=== PATIENT | female | born 1970 | race Hispanic/Latino ===

== ENCOUNTER 2017-08-21 14:37 | Inpatient (IN) | payer OTHER ==
[~2017-08-21] VITALS: Ht 162.6 cm; Wt 87.5 kg
--- OUTSIDE RECORDS SUMMARY | 2017-08-21 14:39 | XMS REPORT ---
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 Conditions or Problems Problem Name Problem Code Onset Date Status Entry Date Provider Comment Standard Description Annotate Cervix, screening for malignant neoplasm V76.2 Active Kan Tobias MD Screening for malignant neoplasms of the cervix Hand Counter annual exam V72.3 Active Kan Tobias MD Special investigations and examinations - Gynecological examination IUD surveillance V25.42 Active Kan Tobias MD Encounter for surveillance of intrauterine contraceptive device Mammogram not high risk screening V76.12 Active Kan Tobias MD Other screening mammogram Medication List Medication Instructions Start Date Stop Date Generic Name NDC Status Provider Patient Instruction Drug Treatment Unknown - unknown Vital Signs Date Name Value Unit Range Description blood pressure, diastolic 76 mm[Hg] BP tejeda blood pressure, systolic 122 mm[Hg] BP sys height E&M 61 [in_us] Bdy height pulse rate E&M 77 /min Heart rate respiratory rate E&M 17 /min Resp rate temperature E&M 98.6 [degF] Body temperature weight E&M 192 [lb_av] Weight Measured Procedures Code Procedure Name Date Entry Date Standard Description CPT-09994 New Patient Well Exam (40 - 64 Yrs) - 51500 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
[2017-08-21 15:28] LABS: BASOPHILS # (AUTO) 0.1 (0.0-0.1); BASOPHILS % 0.4 % (0.0-1.0); EOSINOPHILS # (AUTO) 0.5 (0.0-0.4); EOSINOPHILS % 4.2 % (0.0-6.0); HEMATOCRIT 37.5 % (34.2-44.1); HEMOGLOBIN 13.1 g/dL (12.0-16.0); LYMPHOCYTES # (AUTO) 1.9 (1.0-3.2); LYMPHOCYTES % 15.7 % (18.0-39.1); MEAN CORPUSCULAR HGB CONC 34.9 g/dL (31-35); MONOCYTES # (AUTO) 0.4 (0.2-0.8); MONOCYTES % 3.6 % (4.4-11.3); NEUTROPHILS # (AUTO) 8.9 (2.1-6.9); NEUTROPHILS % 75.8 % (38.7-80.0); PLATELET COUNT 313 x10e3/uL (140-360); RED BLOOD COUNT 4.52 x10e6/uL (3.6-5.1); RED CELL DISTRIBUTION WIDTH 12.6 % (11.7-14.4)
[2017-08-21] MEDS ORDERED: FAMOTIDINE 20 MG/2 ML VIAL IV STA (15:44)
[2017-08-21] MEDS ORDERED: SODIUM CHLORIDE 0.9% 1000ML 1,000 ML IV ONE (15:45)
[2017-08-21] MEDS ORDERED: MAALOX/LIDOCAINE/BENADRYL 120 ML BTL PO ONE ×2 (15:45→16:15)
[2017-08-21 15:50] LABS: COLOR,URINE YELLOW (YELLOW)
[2017-08-21 15:51] LABS: ALANINE AMINOTRANSFERASE 16 IU/L (0-55); ALBUMIN 4.2 g/dL (3.5-5.0); ALBUMIN/GLOBULIN RATIO 1.2 (0.8-2.0); ALKALINE PHOSPHATASE 76 IU/L (40-150); ANION GAP 13.6 mmol/L (8-16); BILIRUBIN,URINE NEGATIVE (NEGATIVE); BLOOD UREA NITROGEN 12 mg/dL (7-26); BUN/CREATININE RATIO 17 (6-25); CALCIUM 9.2 mg/dL (8.4-10.2); CARBON DIOXIDE 23 mmol/L (22-29); CHLORIDE 103 mmol/L (98-107); CLARITY,URINE SL CLOUDY (CLEAR); CREATININE, SERUM 0.71 mg/dL (0.57-1.11); EST GLOMERULAR FILTRATION RATE > 60 ML/MIN (60-); GLUCOSE 121 mg/dL (74-118); KETONES,URINE NEGATIVE (NEGATIVE); LEUKOCYTE ESTERASE ,URINE TRACE (NEGATIVE); NITRITE,URINE NEGATIVE (NEGATIVE); POTASSIUM 3.6 mmol/L (3.5-5.1); PROTEIN,URINE DIPSTICK NEGATIVE (NEGATIVE); SODIUM 136 mmol/L (136-145); URINE UROBILINOGEN 0.2 mg/dL (0.2 - 1)
[2017-08-21 16:08] LABS: AMYLASE 65 U/L (25-125); CREATINE KINASE 109 IU/L (29-168); LIPASE 13 U/L (8-78)
[2017-08-21 16:14] LABS: BACTERIA,URINE MANY /HPF; EPITHELIAL CELLS,URINE MODERATE /LPF; WBC,URINE (MAN) 0-5 /HPF (0-5)
--- NOTE | 2017-08-21 16:20 | Diagnostic Imaging Report ---
PROCEDURE: A single AP view of the chest. COMPARISON: None. INDICATIONS: ACID REFLUX. MID UPPER ABDOMINAL PAIN FINDINGS: Lines/tubes: None. Lungs: The lungs are well inflated and clear. There is no evidence of pneumonia or pulmonary edema. Pleura: There is no pleural effusion or pneumothorax. Heart and mediastinum: The heart and the mediastinum are unremarkable. Bones: No acute bony abnormality. IMPRESSION: No acute cardiopulmonary disease. Dictated by: Edgard Slade M.D. on 08/21/2017 at 16:20 Electronically approved by: Edgard Slade M.D. on 08/21/2017 at 16:20
[2017-08-21] MEDS ORDERED: MORPHINE SULFATE 5 MG/ML VIAL IV ONE (16:45)
[2017-08-21] MEDS ORDERED: MORPHINE SULFATE 2 MG/ML SYR IV ONE (16:45)
[2017-08-21] MEDS ORDERED: DONNATAL/LIDOCAINE/MAALOX 30 ML SUSP PO ONE ×2 (16:45→17:00)
[2017-08-21] MEDS ORDERED: ONDANSETRON HCL INJ 2 MG/ML VIAL IV STA (16:51)
--- NOTE | 2017-08-21 18:16 | Diagnostic Imaging Report ---
PROCEDURE: CT ABDOMEN AND PELVIS WITH CONTRAST TECHNIQUE: The abdomen and pelvis were scanned utilizing a multidetector helical scanner from the diaphragm to the lesser trochanter after the IV administration of 100 cc of Isovue 370 and the oral administration of water. Coronal and sagittal multiplanar reformations were obtained. DLP: 615.13 mGy-cm COMPARISON: None. INDICATIONS: abdominal pain FINDINGS: LOWER THORAX: Left lower lobe 0.4 cm pulmonary nodule (series 2 image 6). HEPATOBILIARY: A 0.5 cm hypodensity at the dome is too small to characterize but probably a cyst. No biliary ductal dilatation. SPLEEN: No splenomegaly. PANCREAS: No focal masses or ductal dilatation. ADRENALS: No adrenal nodules. KIDNEYS/URETERS: No hydronephrosis, stones, or solid mass lesions. A few tiny hypodensities in both kidneys measure up to 0.5 cm in the right renal pole, too small to characterize but likely cysts. PELVIC ORGANS/BLADDER: Intrauterine device in place. Left ovarian 2.1 cm corpus luteum. PERITONEUM / RETROPERITONEUM: No free air or fluid. LYMPH NODES: No lymphadenopathy. VESSELS: A 0.6 cm rounded calcification in the splenic hilum may represent a small splenic artery aneurysm (coronal image 60). GI TRACT: No distention or wall thickening. The appendix is normal. BONES AND SOFT TISSUES: Fat containing supraumbilical hernia with 4.1 x 2.6 x 3 cm sac and 0.7 cm neck. Hernia neck is located approximately 2 cm superior to the umbilicus. IMPRESSION: No acute abnormalities in the abdomen and pelvis. Dictated by: Edgadr Slade M.D. on 08/21/2017 at 18:16 Electronically approved by: Edgard Slade M.D. on 08/21/2017 at 18:16
[2017-08-21] MEDS ORDERED: PIPER-TAZ 3.375 GM 50 ML IV ONE (19:00)
[2017-08-21] MEDS ORDERED: SODIUM CHLORIDE FLUSH 10 ML SYR INJ PRN (19:00)
--- OUTSIDE RECORDS SUMMARY | 2017-08-21 19:17 | XMS REPORT ---
Author [facility] Address Unknown Phone Unavailable Care Team Providers Care Cloth Tester Quality Name Role Phone EMERSON MONTEIRO Unavailable Unavailable Problems This patient has no known problems. Allergies, Adverse Reactions, Alerts This patient has no known allergies or adverse reactions. Medications This patient has no known medications. Results Test Description Test Time Test Comments Text Results Atomic Results Result Comments CT ABDOMEN/PELVIS W [place] [address] Patient Name: JAMIE VERGARA MR #: [id number] : 1970 Age/Sex: 47/F Req #: [id number] Adm Physician: Ordered by: EMERSON MONTEIRO MD Report #: [id number] Location: ER Room/Bed: Procedure: [id number] CT/CT ABDOMEN/PELVIS W Exam Date: Exam Time: REPORT STATUS: Signed PROCEDURE: CT ABDOMEN AND PELVIS WITH CONTRAST TECHNIQUE: The abdomen and pelvis were scanned utilizing a multidetector helical scanner from the diaphragm to the lesser trochanter after the IV administration of 100 cc of Isovue 370 and the oral administration of water. Coronal and sagittal multiplanar reformations were obtained. DLP: 615.13 mGy-cm COMPARISON: None. INDICATIONS: abdominal pain FINDINGS: LOWER THORAX: Left lower lobe 0.4 cm pulmonary nodule (series 2 image 6). HEPATOBILIARY: A 0.5 cm hypodensity at the dome is too small to characterize but probably a cyst. No biliary ductal dilatation. SPLEEN: No splenomegaly. PANCREAS: No focal masses or ductal dilatation. ADRENALS: No adrenal nodules. KIDNEYS/URETERS: No hydronephrosis, stones, or solid mass lesions. A few tiny hypodensities in both kidneys measure up to 0.5 cm in the right renal pole, too small to characterize but likely cysts. PELVIC ORGANS/BLADDER: Intrauterine device in place. Left ovarian 2.1 cm corpus luteum. PERITONEUM / RETROPERITONEUM : No free air or fluid. LYMPH NODES: No lymphadenopathy. VESSELS: A 0.6 cm rounded calcification in the splenic hilum may represent a small splenic artery aneurysm (coronal image 60). GI TRACT: No distention or wall thickening. The appendix is normal. BONES AND SOFT TISSUES: Fat containing supraumbilical hernia with 4.1 x 2.6 x 3 cm sac and 0.7 cm neck. Hernia neck is located approximately 2 cm superior to the umbilicus. IMPRESSION: No acute abnormalities in the abdomen and pelvis. Dictated by: Edgard Naik M.D. on 08/21/2017 at 18:16 Electronically approved by : Edgard Naik M.D. on 08/21/2017 at 18:16 Dictated By: EDGARD NAIK MD 15 Transcribed By: NOAH on 08/21/171815 COPY TO: EMERSON MONTEIRO MD [facility] ([facility]) [place] [address] Patient Name: JAMIE VERGARA MR #: [id number] : 1970 Age/Sex: 47/F Req #: [id number] Adm Physician: Ordered by: EMRESON MONTEIRO MD Report #: [id number] Location: ER Room/Bed: Procedure: [id number] DX/CHEST SINGLE (PORTABLE) Exam Date: 08/21/17 Exam Time: 1546 REPORT STATUS: Signed PROCEDURE: A single AP view of the chest. COMPARISON: None. INDICATIONS: ACID REFLUX. MID UPPER ABDOMINAL PAIN FINDINGS: Lines/tubes: None. Lungs: The lungs are well inflated and clear. There is no evidence of pneumonia or pulmonary edema. Pleura: There is no pleural effusion or pneumothorax. Heart and mediastinum: The heart and the mediastinum are unremarkable. Bones: No acute bony abnormality. IMPRESSION: No acute cardiopulmonary disease. Dictated by: Edgard Naik M.D. on 09/2017 at 16:20 Electronically approved by: Edgard Naik M.D. on 08/21 at 16:20 Dictated By: EDGARD NAIK MD 1620 Transcribed By: NOAH on 08/21/17 1620 COPY TO: MEERSON MONTEIRO MD
--- OUTSIDE RECORDS SUMMARY | 2017-08-21 19:17 | XMS REPORT ---
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
[2017-08-21] MEDS: SODIUM CHLORIDE 0.9% 1000ML 1,000 ML IV SCH (19:55)
[2017-08-21 20:00] VITALS: BP 122/62
[2017-08-21] MEDS ORDERED: SODIUM CHLORIDE 0.9% 50ML 50 ML ONE (20:38)
[2017-08-21] MEDS ORDERED: IOPAMIDOL 370 MG/ML 200 ML INFUS..BTL INJ ONE (20:38)
[2017-08-21 22:33] VITALS: BP 122/62
[2017-08-22] VITALS (8 sets, daily range): BP systolic 107–149; BP diastolic 55–90
[2017-08-22] MEDS: ONDANSETRON HCL INJ 2 MG/ML VIAL IV PRN ×2 (01:37→09:23)
[2017-08-22] MEDS: MORPHINE SULFATE 2 MG/ML SYR IV PRN ×2 (01:37→09:23)
[2017-08-22] MEDS: SODIUM CHLORIDE 0.9% 1000ML 1,000 ML IV SCH ×2 (02:52→09:23)
[2017-08-22 07:18] LABS: BASOPHILS # (AUTO) 0.1 (0.0-0.1); BASOPHILS % 0.6 % (0.0-1.0); EOSINOPHILS # (AUTO) 0.8 (0.0-0.4); EOSINOPHILS % 9.8 % (0.0-6.0); HEMATOCRIT 34.6 % (34.2-44.1); HEMOGLOBIN 11.7 g/dL (12.0-16.0); LYMPHOCYTES # (AUTO) 1.7 (1.0-3.2); LYMPHOCYTES % 20.1 % (18.0-39.1); MEAN CORPUSCULAR HEMOGLOBIN 28.8 pg (28-32); MEAN CORPUSCULAR HGB CONC 33.8 g/dL (31-35); MEAN CORPUSCULAR VOLUME 85.2 fL (81-99); MONOCYTES # (AUTO) 0.5 (0.2-0.8); NEUTROPHILS # (AUTO) 5.3 (2.1-6.9); NEUTROPHILS % 63.1 % (38.7-80.0); PLATELET COUNT 274 x10e3/uL (140-360); RED BLOOD COUNT 4.06 x10e6/uL (3.6-5.1); RED CELL DISTRIBUTION WIDTH 12.8 % (11.7-14.4)
[2017-08-22 07:29] LABS: INR 1.19; PROTHROMBIN TIME 14.2 seconds (11.9-14.5)
[2017-08-22 07:30] LABS: PARTIAL THROMBOPLASTIN TIME 29.6 seconds (23.8-35.5)
[2017-08-22 07:41] LABS: ALANINE AMINOTRANSFERASE 14 IU/L (0-55); ALBUMIN 3.4 g/dL (3.5-5.0); ALBUMIN/GLOBULIN RATIO 1.1 (0.8-2.0); ALKALINE PHOSPHATASE 58 IU/L (40-150); ANION GAP 10.6 mmol/L (8-16); BLOOD UREA NITROGEN 8 mg/dL (7-26); BUN/CREATININE RATIO 12 (6-25); CALCIUM 8.4 mg/dL (8.4-10.2); CARBON DIOXIDE 22 mmol/L (22-29); CHLORIDE 112 mmol/L (98-107); CREATININE, SERUM 0.69 mg/dL (0.57-1.11); EST GLOMERULAR FILTRATION RATE > 60 ML/MIN (60-); GLUCOSE 94 mg/dL (74-118); POTASSIUM 3.6 mmol/L (3.5-5.1); SODIUM 141 mmol/L (136-145)
--- NOTE | 2017-08-22 09:37 | History and Physical ---
CHIEF COMPLAINT: Periumbilical pain. HISTORY OF PRESENT ILLNESS: The patient is a 47-year-old female who complains of several month history of pain in the periumbilical region that got worse yesterday, reason for which she came to the emergency room. She had a CT scan done there that revealed epigastric hernia located superior to the umbilicus with incarceration of fat. The rest of the CT scan was unremarkable. She had nausea, but no vomiting. No diarrhea or hematochezia. PAST MEDICAL HISTORY: Unremarkable. History of gastritis in the past. PAST SURGICAL HISTORY: Negative. She does not drink. Does not smoke. ALLERGIES: DOES NOT HAVE ANY KNOWN ALLERGIES. FAMILY HISTORY: Unremarkable. REVIEW OF SYSTEMS: Remarkable for what has already been stated. PHYSICAL EXAMINATION VITALS: She is afebrile with stable vital signs. HEENT: Revealed no active disease. LUNGS: Clear. HEART: Reveals regular sinus rhythm. ABDOMEN: Reveals an incarcerated epigastric hernia located superior to the umbilicus. EXTREMITIES: Reveal no clubbing, cyanosis or edema. NEUROLOGIC: Unremarkable. ASSESSMENT: Incarcerated epigastric supraumbilical hernia. PLAN: Proceed with repair of the epigastric periumbilical hernia. Job#: [id number]
[2017-08-22] MEDS ORDERED: BUPIVACAINE 0.25%/EPI 30ML SDV INJ ONE (13:33)
[2017-08-22] MEDS ORDERED: BACITRACIN 50,000 UNIT VIAL ONE (13:33)
[2017-08-22] MEDS ORDERED: BUPIVACAINE LIPOSOME/PF 266 MG/20 ML IJ ONE (13:33)
[2017-08-22] MEDS ORDERED: PIPER-TAZ 3.375 GM 0 ML ONE (14:07)
[2017-08-22] MEDS ORDERED: GLYCOPYRROLATE INJ 0.2 MG/ML VIAL ONE (14:27)
[2017-08-22] MEDS ORDERED: ONDANSETRON HCL INJ 2 MG/ML VIAL IV PRN (15:00)
--- NOTE | 2017-08-22 15:38 | Operative Report ---
DATE OF PROCEDURE: August 22, 2017 PREOPERATIVE DIAGNOSIS: Incarcerated supraumbilical epigastric hernia. POSTOPERATIVE DIAGNOSIS: Incarcerated supraumbilical epigastric hernia. PROCEDURE PERFORMED: Repair of epigastric supraumbilical ventral hernia. ANESTHESIA: General endotracheal. ESTIMATED BLOOD LOSS: Minimal. DRAINS: None. COMPLICATIONS: None. INDICATIONS AND FINDINGS: The patient is a 47-year-old female admitted with abdominal pain located superior to the umbilicus. The patient had noticed a bulge in that area. The pain had gotten worse the day of admission. She underwent a workup in the emergency room with a CAT scan which revealed incarcerated hernia superior to the umbilicus containing fat. There was no strangulation and no bowel. INTRAOPERATIVE FINDINGS: The patient had a 2-cm defect located superior to the umbilicus away from the umbilicus making this a supraumbilical ventral type of hernia. There was herniation of fat and omentum through the defect but no bowel. The PPD patch, medium size, was deployed in the intra-abdominal space laying flush against the abdominal wall, taking great care to avoid any interposition of tissue between the mesh and the abdominal wall and making sure that the mesh was laying flat against the abdominal wall. The mesh was secured to the local tissues through the straps with 2-0 Ethibond sutures. DESCRIPTION OF PROCEDURE: With the patient lying on the operative table in the supine position, after administration of general endotracheal anesthesia, she was prepped and draped for repair of ventral hernia. A transverse incision was made directly over the palpable hernia, and the dissection was carried down through the skin and subcutaneous tissue down to the hernia, which was then identified. The hernia was dissected free from the surrounding tissues. The sac was opened. It contained a small amount of fat and omentum. That was excised, and part of that peritoneal sack was tied off with 2-0 Vicryl to prevent bleeding. The intra-abdominal cavity was entered freely, and then the Proceed ventral patch, medium size mesh, was deployed in the abdominal cavity laying flat and flush against the abdominal wall without any interposition of tissue or bending or flipping over of the mesh. The mesh was secured to local tissues through the straps and then several stitches were placed in the upper inferior part of the wound through the mesh itself ring to prevent any tissue to slide through that area. After ascertaining that the mesh lay flat against the abdominal wall, we irrigated the wound and then cut the straps and closed the wound using the following: An 0 Vicryl to loosely approximate the fascia over the defect that was over the mesh. Then the soft tissues were closed using a combination of 2-0 plain catgut and 2-0 Vicryl. Then the skin was closed using everardo. A local block was given with 0.25% Marcaine with epinephrine as a local block. The patient tolerated the procedure well and was taken to the recovery room in stable condition. Job#: [id number]
[2017-08-22] MEDS: D5.45%NS/KCL 20MEQ 1,000 ML IV SCH (17:01)
[2017-08-22] MEDS: HYDROMORPHONE 1MG/1ML INJ IV PRN ×2 (17:02→23:33)
[2017-08-22] MEDS: PANTOPRAZOLE 40 MG 10ML VIAL IV SCH (17:02)
[2017-08-22] MEDS ORDERED: KETOROLAC TROMETHAMINE 30 MG/ML VIAL ONE (17:41)
[2017-08-22] MEDS ORDERED: ONDANSETRON HCL INJ 2 MG/ML VIAL ONE (17:41)
[2017-08-22] MEDS ORDERED: PROPOFOL IV EMULSION 10 MG/ML 20 ML VIAL ONE (17:41)
[2017-08-22] MEDS ORDERED: NEOSTIGMINE 5 MG/5ML SYR ONE (17:41)
[2017-08-22] MEDS ORDERED: ROCURONIUM BROMIDE 10 MG/ML 5ML VIAL ONE (17:41)
[2017-08-22] MEDS ORDERED: SEVOFLURANE INHAL SOLN 250 ML PEN BTL ONE (17:41)
[2017-08-22] MEDS ORDERED: DEXAMETHASONE SOD PHOS INJ 4 MG/ML VIAL ONE (17:41)
[2017-08-22] MEDS ORDERED: GLYCOPYRROLATE INJ 1MG/ 5 ML SYR ONE (17:41)
[2017-08-22] MEDS ORDERED: LIDOCAINE HCL 2% LOCAL INJ 5 ML SDV VIAL INJ ONE (17:41)
[2017-08-22] MEDS ORDERED: FENTANYL CITRATE/PF 100MCG/2 ML INJ ONE (17:57)
[2017-08-22] MEDS ORDERED: MIDAZOLAM HCL 2 MG/2 ML VIAL ONE (17:57)
[2017-08-22] MEDS: PIPER-TAZ 3.375 GM 50 ML IV SCH ×2 (18:38→23:44)
[2017-08-22] MEDS: HYDROCODONE/APAP 7.5MG-325MG 1 EA TAB PO PRN (20:35)
[2017-08-23] VITALS: BP 108/52
[2017-08-23] MEDS: D5.45%NS/KCL 20MEQ 1,000 ML IV SCH ×2 (03:09→09:21)
[2017-08-23 04:00] VITALS: BP 91/56
[2017-08-23] MEDS: PIPER-TAZ 3.375 GM 50 ML IV SCH (05:12)
[2017-08-23] MEDS: HYDROMORPHONE 1MG/1ML INJ IV PRN (07:37)
[2017-08-23 08:00] VITALS: BP 155/80
[2017-08-23 08:43] VITALS: BP 111/59
[2017-08-23] MEDS ORDERED: POTASSIUM CHLORIDE 20MEQ/15ML UDC PO ONE (08:45)
[2017-08-23] MEDS: PANTOPRAZOLE 40 MG 10ML VIAL IV SCH (09:20)
[2017-08-23] MEDS: HYDROCODONE/APAP 7.5MG-325MG 1 EA TAB PO PRN ×2 (09:21→13:00)
[2017-08-23 11:19] VITALS: BP 111/59
[2017-08-23] MEDS ORDERED: TYLENOL WITH C1 EACH PO (11:47)
[2017-08-23 12:27] VITALS: BP 107/70
== END 2017-08-23 13:35 | disposition home or self-care (01) | DRG 355 ==
LOC: ER 14:37 → ERHOLD 19:14 → MED/SURG 21:12
PROVIDERS: ADMIT Surgery; ATTEND Surgery
PROC: 0WUF0JZ Supplement Abdominal Wall with Synthetic Substitute, Open Approach (ICD-10-PCS; principal; 2017-08-22 13:30)
DX: K43.6 Other and unspecified ventral hernia with obstruction, without gangrene (principal); K21.9 Gastro-esophageal reflux disease without esophagitis
CPT/HCPCS: 36415; 71045; 74177; 80053; 81001; 82150; 82550; 82553; 83690; 84484; 84702; 85025; 85610; 85730; 93005; 96367; 96374; 96376; 99284; C1781; J1100; J1170; J1885; J2001; J2250; J2270; J2405; J2543; J7030; Q9967

== ENCOUNTER → 2017-09-02 | Outpatient (CLI) | payer OTHER ==
[~2017-09-02] MED LIST: TYLENOL WITH C1 EACH PO
--- NOTE | 2017-09-03 08:52 | Diagnostic Imaging Report ---
#[id number] - [id number] #BILATERAL DIGITAL SCREENING MAMMOGRAM WITH CAD: 09/02/2017 CLINICAL: Routine screening. Comparison is made to exam dated: 05/14/2016 mammogram - [facility]. Current study contains 5 films. There are scattered fibroglandular elements in both breasts. Current study was also evaluated with a Computer Aided Detection (CAD) system. No significant masses, calcifications, or other findings are seen in either breast. There has been no significant interval change. IMPRESSION: NEGATIVE There is no mammographic evidence of malignancy. A 1 year screening mammogram is recommended. The patient will be notified by letter of the results. Keith lopez/alvin:09/02/2017 10:18:22 Page Technician: Nena MUÑOZ(R)(M), [facility] letter sent: Compared to Prior B9 Mammogram BI-RADS: 1 Negative
== END ==
LOC: MAMMO 09:08
PROVIDERS: ATTEND Obstetrics & Gynecology
DX: Z12.31 Encounter for screening mammogram for malignant neoplasm of breast (principal)
CPT/HCPCS: 77067

== ENCOUNTER → 2017-10-31 | Day surgery (SDC) | payer OTHER ==
[2017-10-29 12:31] LABS: BASOPHILS # (AUTO) 0.1 (0.0-0.1); BASOPHILS % 0.7 % (0.0-1.0); EOSINOPHILS # (AUTO) 0.5 (0.0-0.4); EOSINOPHILS % 4.3 % (0.0-6.0); HEMATOCRIT 35.8 % (34.2-44.1); HEMOGLOBIN 12.3 g/dL (12.0-16.0); LYMPHOCYTES # (AUTO) 1.7 (1.0-3.2); MEAN CORPUSCULAR HGB CONC 34.4 g/dL (31-35); MEAN CORPUSCULAR VOLUME 84.4 fL (81-99); MONOCYTES # (AUTO) 0.5 (0.2-0.8); NEUTROPHILS # (AUTO) 9.1 (2.1-6.9); NEUTROPHILS % 76.6 % (38.7-80.0); PLATELET COUNT 318 x10e3/uL (140-360); RED BLOOD COUNT 4.24 x10e6/uL (3.6-5.1); RED CELL DISTRIBUTION WIDTH 13.3 % (11.7-14.4)
[~2017-10-31] MED LIST changes: +BUPIVACAINE 0.5%/EPI 30 ML SDV INJ ONE; +DEXAMETHASONE SOD PHOS INJ 4 MG/ML VIAL ONE; +FENTANYL CITRATE/PF 100MCG/2 ML INJ ONE; +HYDROCODONE/APAP 7.5MG-325MG 1 EA TAB ONE; +KETOROLAC TROMETHAMINE 30 MG/ML VIAL ONE; +LIDOCAINE HCL 1% LOCAL INJ 20 ML VIAL ONE; +OMEPRAZOLE PO; +ONDANSETRON HCL INJ 2 MG/ML VIAL ONE; +PROPOFOL IV EMULSION 10 MG/ML 20 ML VIAL ONE; +SEVOFLURANE INHAL SOLN 250 ML PEN BTL ONE
--- NOTE | 2017-10-31 14:18 | Operative Report ---
DATE OF PROCEDURE: October 31, 2017 PREOPERATIVE DIAGNOSIS: Lipoma of the back. POSTOPERATIVE DIAGNOSIS: Lipoma of the back. PROCEDURE PERFORMED: Excision of lipoma of the back. ANESTHESIA: General endotracheal. ESTIMATED BLOOD LOSS: Minimal. DRAINS: None. COMPLICATIONS: None. INDICATIONS AND FINDINGS: This patient is a 47-year-old female admitted for excision of a growing mass of the back. INTRAOPERATIVE FINDINGS: The patient had a 3 x 5 cm lipoma of the left upper back. It was well encapsulated. DESCRIPTION OF PROCEDURE: With the patient lying in the operative table in the supine position after administration of general endotracheal anesthesia, she was prepped and draped for excision of lipoma of the left upper back. An incision was made over the palpable mass and the incision was carried down through the skin, subcutaneous tissue, superficial fascia until the lipoma came into view. It was then sharply excised from the surrounding tissue. It was well encapsulated. Bleeding points were cauterized. The wound was closed in 3 layers using 2-0 Vicryl for the deeper subcutaneous layer as well as subcuticular layer and the skin was closed using 3-0 vertical mattress sutures. Sterile dressing was applied. The patient tolerated the procedure well, taken to recovery room in stable condition. Job#: [id number] ZULMA
== END | disposition home or self-care (01) ==
LOC: OR 08:29
PROVIDERS: ATTEND Surgery
DX: D17.39 Benign lipomatous neoplasm of skin and subcutaneous tissue of other sites (principal); K21.9 Gastro-esophageal reflux disease without esophagitis
CPT/HCPCS: 13101; 21931; 36415; 81025; 85025; 88304; J1100; J1885; J2001; J2405

== ENCOUNTER → 2019-12-08 | Outpatient (CLI) | payer OTHER ==
[~2019-12-08] MED LIST changes: -BUPIVACAINE 0.5%/EPI 30 ML SDV INJ ONE; -DEXAMETHASONE SOD PHOS INJ 4 MG/ML VIAL ONE; -FENTANYL CITRATE/PF 100MCG/2 ML INJ ONE; -HYDROCODONE/APAP 7.5MG-325MG 1 EA TAB ONE; -KETOROLAC TROMETHAMINE 30 MG/ML VIAL ONE; -LIDOCAINE HCL 1% LOCAL INJ 20 ML VIAL ONE; -ONDANSETRON HCL INJ 2 MG/ML VIAL ONE; -PROPOFOL IV EMULSION 10 MG/ML 20 ML VIAL ONE; -SEVOFLURANE INHAL SOLN 250 ML PEN BTL ONE
== END ==
LOC: MAMMO 12:36
PROVIDERS: ATTEND Student in an Organized Health Care Education/Training Program
DX: Z12.31 Encounter for screening mammogram for malignant neoplasm of breast (principal)
CPT/HCPCS: 77067

== ENCOUNTER → 2019-12-24 | Outpatient (CLI) | payer OTHER | LOC: MAMMO 12:57 | PROVIDERS: ATTEND Student in an Organized Health Care Education/Training Program | DX: N63.20 Unspecified lump in the left breast, unspecified quadrant (principal) ==

== ENCOUNTER → 2025-02-15 | Day surgery (SDC) | payer OTHER ==
[~2025-02-15] MED LIST changes: +ELIQUIS2.5 MG PO; +FENTANYL CITRATE/PF 100MCG/2 ML INJ ONE; +MIDAZOLAM HCL 2 MG/2 ML VIAL ONE; +ONDANSETRON HCL INJ 2MG/ML 2ML 2 MG/ML VIAL ONE; +PROPOFOL IV EMULSION 10 MG/ML 20 ML VIAL ONE
[2025-02-15] MEDS: LACTATED RINGER'S 1,000 ML ONE (12:08)
[2025-02-15 13:49] VITALS: TEMP 97.8
[2025-02-15 14:15] VITALS: BP 138/80; PULSE 75; RESP 18; O2SAT 97
== END | disposition home or self-care (01) ==
LOC: OR 10:50
PROVIDERS: ATTEND Internal Medicine Gastroenterology
DX: Z12.11 Encounter for screening for malignant neoplasm of colon (principal); K29.70 Gastritis, unspecified, without bleeding; K21.00 Gastro-esophageal reflux disease with esophagitis, without bleeding; K31.A11 Gastric intestinal metaplasia without dysplasia, involving the antrum; K31.89 Other diseases of stomach and duodenum; K64.8 Other hemorrhoids; E66.01 Morbid (severe) obesity due to excess calories; Z79.02 Long term (current) use of antithrombotics/antiplatelets; Z68.35 Body mass index [BMI] 35.0-35.9, adult; Z86.718 Personal history of other venous thrombosis and embolism
CPT/HCPCS: 43239; 45378; 81025; 93005; J2250; J2405; J2704; J3010; J7121